=== PATIENT | female | born 1990 | race Caucasian/White ===

== ENCOUNTER → 2019-09-10 | Outpatient (CLI) | payer OTHER ==
--- NOTE | 2019-09-10 15:11 | Diagnostic Imaging Report ---
Indication: Pain behind the left nipple as well as pulling sensation in the right breast. 2-D and 3-D bilateral diagnostic mammography was performed with CAD. No prior studies are available for comparison. This is a baseline study. Both breasts are heterogeneously dense, limiting the sensitivity of mammography. Rolled views of the left breast were also performed. No discrete mass is identified. No malignant appearing microcalcifications are seen. Axillae are unremarkable. IMPRESSION: BI-RADS 0. No mammographic features suspicious for malignancy are identified. Even so, directed sonographic interrogation of both breasts at the areas of pain and pulling sensation is recommended and will be performed today. Dictated by: Dictated on workstation # [id number]
--- NOTE | 2019-09-10 16:24 | Diagnostic Imaging Report ---
INDICATION: Pain in the retroareolar left breast and pulling sensation in the upper right breast. Sonographic interrogation of the areas of pain and pulling was performed. This correlates to the retroareolar left breast and the upper aspect of the right breast. No sonographic abnormality is seen within either breast. No solid or cystic mass is detected. IMPRESSION: BI-RADS Category 1 No sonographic abnormality is detected. ACR BI-RADS Category 1: Negative. Result letter will be mailed to the patient. Note: At least 10% of breast cancer is not imaged by mammography. Dictated by: Dictated on workstation # [id number]
== END ==
LOC: RAD 13:04
PROVIDERS: ATTEND Family Medicine
DX: N64.4 Mastodynia (principal)
CPT/HCPCS: 76642; 77066; G0279; 77062